=== PATIENT | female | born 1955 | race Caucasian/White ===

== ENCOUNTER 2020-03-24 18:32 | Emergency (ER) | payer OTHER ==
[~2020-03-24] VITALS: Ht 154.9 cm; Wt 65.8 kg
--- OUTSIDE RECORDS SUMMARY | 2020-03-24 18:36 | XMS ---
PreManage Notification: ISAIAH BOWEN Security [employer] Events No recent Security Events currently on file [facility] There are no care providers on record at this time. Sherif has no Care Guidelines for this patient. [place] VISIT COUNT (12 MO.) 1 [facility] TOTAL 1 NOTE: Visits indicate total known visits. ED/UCC VISIT TRACKING (12 MO.) 03/24/2020 18:34 [facility] [place] TYPE: Emergency COMPLAINT: - POSS HIGH BP,HEADACHE INPATIENT VISIT TRACKING (12 MO.) No inpatient visits to display in this time frame [id number]
[2020-03-24] MEDS ORDERED: VERAPAMIL HCL80 MG PO (18:38)
[2020-03-24] MEDS ORDERED: HYDROCHLOROTH12.5 MG PO (18:39)
[2020-03-24] MEDS ORDERED: METHADONE HCL10 MG PO (18:39)
[2020-03-24] MEDS ORDERED: TYLENOL325 MG PO (18:40)
[2020-03-24] MEDS ORDERED: OXYCODONE HCL5 MG PO (18:41)
[2020-03-25] MEDS ORDERED: LISINOPRIL10 MG PO (20:41)
--- NOTE | 2020-03-25 22:12 | EKG ---
[facility] [address] [facility] [place] [address] Signed Normal sinus rhythm Possible Left atrial enlargement Nonspecific T wave abnormality Prolonged QT Abnormal ECG When compared with ECG of 26-JAN-2020 14:22, No significant change was found Confirmed by AUGUST JOHNSON MD ([id number]) on 03/25/2020 10:12:36 PM Electronically Signed By: AUGUST JOHNSON MD 03/25/20 2212 PATIENT NAME: ISAIAH BOWEN Electrocardiogram DATE OF : 57 PHYSICIAN: AUGUST JOHNSON MD REPORT #: [id number] REPORT IS CONFIDENTIAL AND NOT TO BE RELEASED WITHOUT AUTHORIZATION
== END 2020-03-24 20:15 | disposition home or self-care (01) ==
LOC: ED 18:32
DX: I10 Essential (primary) hypertension (principal); Z87.891 Personal history of nicotine dependence; Z88.0 Allergy status to penicillin; Z79.899 Other long term (current) drug therapy
CPT/HCPCS: 71045; 80053; 81001; 84443; 84484; 85025; 93005; 93010; 96374; 96375; 99284-25; J1200; J1885; J2765; J7030

== ENCOUNTER 2020-03-25 16:52 | Emergency (ER) | payer OTHER ==
[~2020-03-25] VITALS: Ht 154.9 cm; Wt 65.8 kg
[~2020-03-25 16:52] MED LIST: HYDROCHLOROTH12.5 MG PO; METHADONE HCL10 MG PO; OXYCODONE HCL5 MG PO; TYLENOL325 MG PO; VERAPAMIL HCL80 MG PO
--- OUTSIDE RECORDS SUMMARY | 2020-03-25 16:56 | XMS ---
PreManage Notification: ISAIAH BOWEN Security [employer] Events No recent Security Events currently on file CRITERIA MET - [facility] - [facility] - 2 Visits in 30 Days CARE PROVIDERS There are no care providers on record at this time. Sherif has no Care Guidelines for this patient. [place] [facility] (12 [address] [facility] NOTE: Visits indicate total known visits. ED/C VISIT TRACKING (12 MO.) 03/25/2020 16:53 [facility] [place] TYPE: Emergency COMPLAINT: - HIGH BP, HEADACHE 03/24/2020 18:[address] [facility] [place] TYPE: Emergency COMPLAINT: - POSS HIGH BP,HEADACHE INPATIENT VISIT TRACKING (12 MO.) No inpatient visits to display in this time frame [id number]
[2020-03-25] MEDS ORDERED: LISINOPRIL10 MG PO (20:41)
== END 2020-03-25 20:46 | disposition home or self-care (01) ==
LOC: ED 16:52
DX: I10 Essential (primary) hypertension (principal); Z88.0 Allergy status to penicillin; Z79.899 Other long term (current) drug therapy
CPT/HCPCS: 70450; 99284-25

== ENCOUNTER 2024-03-30 10:10 | Emergency (ER) | payer MEDICARE, OTHER ==
[~2024-03-30] VITALS: Ht 154.9 cm; Wt 52.3 kg
[~2024-03-30 10:10] MED LIST changes: +LISINOPRIL10 MG PO
[2024-03-30] MEDS ORDERED: CLINDAMYCIN HC300 MG PO (10:22)
[2024-03-30] MEDS ORDERED: CLINDAMYCIN HC150 MG PO (10:22)
[2024-03-30] MEDS ORDERED: ZITHROMAX250 MG PO (11:05)
[2024-03-30 11:15] VITALS: BP 173/92
== END 2024-03-30 11:15 | disposition home or self-care (01) ==
LOC: ED 10:10
DX: K04.7 Periapical abscess without sinus (principal); I10 Essential (primary) hypertension; Z88.0 Allergy status to penicillin; Z79.899 Other long term (current) drug therapy
CPT/HCPCS: 99283